=== PATIENT | male | born 1990 | race African-American/Black ===

== ENCOUNTER 2018-04-17 07:22 | Emergency (ER) | payer MEDICAID, OTHER ==
[~2018-04-17] VITALS: Ht 170.2 cm; Wt 85.0 kg
[~2018-04-17 07:22] MED LIST: DOXY100C2; HYDR-3927
[2018-04-17 09:46] VITALS: BP 125/78
== END 2018-04-17 10:17 | disposition home or self-care (01) ==
LOC: ER 09:54
DX: F07.81 Postconcussional syndrome (principal); J45.909 Unspecified asthma, uncomplicated; F17.200 Nicotine dependence, unspecified, uncomplicated; R51 Headache; Z88.2 Allergy status to sulfonamides; Y08.89XA Assault by other specified means, initial encounter; Y93.89 Activity, other specified; Y92.89 Other specified places as the place of occurrence of the external cause; Y99.8 Other external cause status
CPT/HCPCS: 70450; 72125; 99284